=== PATIENT | female | born 1980 | race African-American/Black ===

== ENCOUNTER 2017-09-17 18:00 | Emergency (ER) | END 2017-09-17 23:04 | disposition home or self-care (01) ==

== ENCOUNTER 2018-09-13 10:52 | Emergency (ER) | payer MEDICARE, OTHER ==
[~2018-09-13] VITALS: Wt 79.8 kg
[~2018-09-13 10:52] MED LIST: ACET1TAB40 PO; POLY17PO6 PO
[2018-09-13 10:55] VITALS: BP 150/87; PULSE 87; RESP 18
[2018-09-13] MEDS ORDERED: HYDR-3029 PO (11:55)
[2018-09-13] MEDS ORDERED: LORAZEPAM 0.5 MG TAB PO ONE (12:00)
--- NOTE | 2018-09-13 12:24 | ERD ---
ER Documentation Chief Complaint Chief Complaint ANXIETY ATTACK WITH, SOB,BLURRY VISION, CHEST PAINS HPI 37-year-old female presenting with anxiety. Patient states she has had these symptoms for the last few days. She has been taking Paxil at home. Denies any chest pain or shortness of breath. Feels agitated and is relieved with Ativan. Patient denies any fevers. Denies pleuritic chest pain. Denies hemoptysis. Denies fevers. Medical history is anxiety. NKDA. Surgical history . Social history denies ROS All systems reviewed and are negative except as per history of present illness. Medications Home Meds Active Scripts Hydroxyzine Hcl* (Hydroxyzine Hcl*) 10 Mg Tablet, 10 MG PO Q6H PRN for ANXIETY, #30 TAB Prov:GARETH MAYEN PA-C 09/13/18 Acetaminophen with Codeine (Acetaminophen-Cod #3 Tablet) 1 Each Tablet, 1 TAB PO Q6H PRN for PAIN, #7 TAB Prov:KENDRA CASTRO MD 09/17/17 Polyethylene Glycol* (Miralax*) 17 Gm Powd.pack, 17 GM PO DAILY, #7 Prov:KENDRA CASTRO MD 09/17/17 Allergies Allergies: Coded Allergies: No Known Drug Allergy (Verified Allergy, Unknown, 09/13/18) PMhx/Soc History of Surgery: Yes (csection) Anesthesia Reaction: No Hx Neurological Disorder: No Hx Respiratory Disorders: No Hx Cardiac Disorders: No Hx Miscellaneous Medical Probl: Yes (Intestinal problem) Hx Alcohol Use: No Hx Substance Use: No Hx Tobacco Use: No FmHx Family History: No diabetes, No coronary disease, No other Physical Exam Vitals Vital Signs Date Temp Pulse Resp B/P (MAP) Pulse Ox O2 O2 Flow FiO2 Time Delivery Rate 09/13/18 98.1 87 18 150/87 99 10:55 (108) Physical Exam GENERAL: The patient is well-appearing, well-nourished, in no acute distress HEENT: Atraumatic. Conjunctivae are pink. Pupils equal, round, and reactive to light. There is no scleral icterus. Tympanic membranes clear bilaterally. Oropharynx clear. NECK: C-spine is soft and supple. There is no meningismus. There is no cervical lymphadenopathy. CHEST: Clear to auscultation bilaterally. There are no rales, wheezes or rhonchi. HEART: Regular rate and rhythm. No murmurs, clicks, rubs or gallops. Results 24 hrs Current Medications Medications Dose Sig/Michael Start Time Status Last (Trade) Ordered Route PRN Stop Time Admin Dose Reason Admin Lorazepam 0.5 mg ONCE ONCE 09/13/18 DC 09/13/18 (Ativan) PO 12:00 11:59 09/13/18 12:01 Procedures/MDM EKG: Rate/Rhythm: 84 bpm Normal Sinus Rhythm QRS, ST, T-waves: No changes consistent w/ acute ischemia Impression: No evidence of ischemia or arrhythmia ER Course: Ativan given in ED MDM: 37-year-old female presenting with anxiety. I have low suspicion for cardiac or pulmonary emergency. I have low suspicion for pneumonia. I have low suspicion for infectious etiology. Patient is discharged stricter precautions and told to follow-up with primary care within 1-2 days for close evaluation. Patient is told if symptoms change or worsen to return immediately to the ER. All questions answered at discharge Departure Diagnosis: Primary Impression: Anxiety attack Condition: Stable Patient Instructions: Anxiety Reaction Referrals: [facility] YOU HAVE RECEIVED A MEDICAL SCREENING EXAM AND THE RESULTS INDICATE THAT YOU DO NOT HAVE A CONDITION THAT REQUIRES URGENT TREATMENT IN THE EMERGENCY DEPARTMENT. FURTHER EVALUATION AND TREATMENT OF YOUR CONDITION CAN WAIT UNTIL YOU ARE SEEN IN YOUR DOCTORS OFFICE WITHIN THE NEXT 1-2 DAYS. IT IS YOUR RESPONSIBILITY TO MAKE AN APPOINTMENT FOR FOLOW-UP CARE. IF YOU HAVE A PRIMARY DOCTOR --you should call your primary doctor and schedule an appointment IF YOU DO NOT HAVE A PRIMARY DOCTOR YOU CAN CALL OUR PHYSICIAN REFERRAL HOTLINE AT IF YOU CAN NOT AFFORD TO SEE A PHYSICIAN YOU CAN CHOSE FROM THE FOLLOWING [facility] [id number] [facility] [facility] [address] [facility] [address] [facility]. [facility] [address] [facility]. [facility] [address] [facility]. [facility]. [address] Additional Instructions: FOLLOW UP WITH YOUR PRIMARY CARE PHYSICIAN TOMORROW.Return to this facility if you are not improving as expected. GARETH MAYEN PA-C Sep 13, 2018 12:24
== END 2018-09-13 12:25 | disposition home or self-care (01) ==
LOC: FTE 10:52
DX: F41.9 Anxiety disorder, unspecified (principal)
CPT/HCPCS: 93005; 99283